=== PATIENT | male | born 1985 | race Caucasian/White ===

== ENCOUNTER 2020-09-26 17:40 | Emergency (ER) | payer OTHER, SELFPAY ==
[2020-09-26 17:45] VITALS: BP 155/122; PULSE 125; RESP 22; TEMP 36.8; O2SAT 98; BMI 30.3
[2020-09-26 18:06] VITALS: BP 153/108; PULSE 116; RESP 22; TEMP 36.8; O2SAT 98
--- NOTE | 2020-09-26 18:06 | HMH.EDUTC ---
[facility] [place] Disposition Clinical Impression: Encounter for laboratory testing for COVID-19 virus Disposition: Home, Self-Care Condition on Discharge: Good Instructions: DI for COVID-19 (Suspected or Confirmed ), COVID-19 Viral Test, COVID-19: Testing and Tracing, Preventing the Spread of Coronavirus Discharge Instructions Additional Instructions: *Monitor Temp, Over the counter Motrin or Tylenol as directed/as needed Tylenol every 4 hours and Motrin every 6 hours (as long as your family doctor has told you that you can take it) for fever or pain. and straight to ER if unable to lower temp less than 101.0 after medication given You were tested for today for COVID19 your test result should be back in the next 24-48 hours, you may call to the [facility] to see if your test results are back in the next 48 hours [phone] [facility] hours are 9am-9pm You was given a handout with instructions for Self Quarantine and Self isolation for while you wait on test results and what to do if they are positive If you are positive the Health Dept will be contacting you also Referrals: Dimas Granados MD [Primary Care Provider] - As needed Time of Disposition: 18:07 Medical Decision Making - Stephen Inquiry Pt receiving controlled substance: No Stephen was queried for this patient: No Vital Signs: 09/26/20 17:45 09/26/20 18:06 Temperature 98.3 F 98.3 F Temperature Source Oral Pulse Rate 116 H Pulse Rate [Left Brachial] 125 H Respiratory Rate 22 22 Blood Pressure 153/108 H Blood Pressure [Left Arm] 155/122 H Blood Pressure Mean [Left Arm] 133 Blood Pressure Source [Left Arm] Automatic Cuff Blood Pressure Position [Left Arm] Sitting 02 Sat by Pulse Oximetry 98 Oxygen Delivery Method Room Air Orders (Tests/Meds): ORDERS Category Date Time Status Covid-19 Nasal PCR Sendout P&C Stat Lab 09/26/20 18:01 Ordered Medical Decision Narrative: Patient blood pressure and HR elevated patient reports that he has not taken his blood pressure medication today and he was worried about the test so his hr elevated decline further treatment and evaluation of Blood pressure [facility] [place] HPI - General Stated complaint: covid test Time Seen by Provider: 09/26/20 18:06 Mode of Arrival: Ambulatory Source of Information: Patient Limitations: No Limitations Description of Symptoms (Recalled from Triage Doc. 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 and others and it is the holidays and he was planning on going home and was going to be around some elderly people and wanted to get tested for COVID States that he is not having any symptoms - Related Data Allergies Allergy/AdvReac Type Severity Reaction Status Date / Time No Known Allergies Allergy Verified 09/26/20 18:03 - Worker's Comp Is this a Worker's Comp case?: No [facility] History - Hepatitis A Screen Drug use history?: No High risk sexual behaviors?: No History of sexually transmitted infection?: No Currently employed?: No Childcare worker?: No Do you have indoor plumbing?: Yes Do you have electricity?: Yes Attestation statement:: This patient has been screened for Hepatitis A risk factors. I have reviewed the patient's past medical history: Yes - Social History Alcohol Intake: never Occupational Status: other ROS Obtained: Yes All systems reviewed & no additional complaints, Yes Systems reviewed as appropriate & no additional complaints - Constitutional Constitutional: Denies system reviewed and no additional complaints, except as docu, Denies body ache, Denies chills, Denies fever(s), Denies headache(s) - ENT Ears, Nose,
== END 2020-09-26 18:10 | disposition home or self-care (01) ==
PROVIDERS: Emergency Provider Nurse Practitioner; PCP Family Medicine
DX: Z20.828 Contact with and (suspected) exposure to other viral communicable diseases (principal)
CPT/HCPCS: 99201; U0003; U0004